=== PATIENT | female | born 1955 | race African-American/Black ===

== ENCOUNTER 2024-05-29 10:54 | Day surgery (SDC) | payer MEDICARE, OTHER ==
[2024-05-29] MEDS ORDERED: Depo-Medrol 40 MG/ML IM ONE (10:55)
[2024-05-29] MEDS ORDERED: BUPIVACAINE 0.5% VIAL IJ ONE (10:55)
[2024-05-29] MEDS ORDERED: DIPRIVAN 200 MG/20 ML IV ONE (13:04)
--- NOTE | 2024-05-29 14:20 | XRAY ---
Indication: Bilateral SI joint injection. Intraoperative fluoroscopy provided for 31 seconds. 2 digital spot image submitted for interpretation demonstrates posterior needle tips projecting over the left and right SI joints. Small amount of contrast injected for both needle tip placement. Correlate with intraoperative findings/report.
--- NOTE | 2024-05-29 14:23 | XRAY ---
31 seconds of fluoroscopy was used in surgery for a bilateral sacroiliac joint injection.
== END 2024-05-29 13:45 | disposition home or self-care (01) ==
LOC: SDC-PAIN 10:54
PROVIDERS: ATTEND Psychiatry & Neurology Pain Medicine
DX: M46.1 Sacroiliitis, not elsewhere classified (principal)
CPT/HCPCS: 72202; 77002; G0260; 27096; J2704; Q9966